=== PATIENT | female | born 1970 | race Hispanic/Latino ===

== ENCOUNTER → 2020-08-07 | Outpatient (CLI) | payer OTHER | LOC: US 13:09 | PROVIDERS: ATTEND Internal Medicine Gastroenterology | DX: R10.84 Generalized abdominal pain (principal) | CPT/HCPCS: 76700 ==

== ENCOUNTER → 2020-08-18 | Outpatient (CLI) | payer OTHER ==
[~2020-08-18] MED LIST: ATORVASTATIN CA20 MG PO; CELEXA20 MG PO; COQ1050 MG PO; LEVOTHYROXINE50 MCG PO; METFORMIN HCL500 MG PO; OMEPRAZOLE40 MG PO; VENLAFAXINE HCL75 MG PO; VITAMIN C500 MG PO
== END | disposition home or self-care (01) ==
LOC: RAD 13:12 → EDSTATUS 08-21 14:30
PROVIDERS: ATTEND Internal Medicine Gastroenterology
DX: Z01.810 Encounter for preprocedural cardiovascular examination (principal); Z01.812 Encounter for preprocedural laboratory examination; Z20.822 Contact with and (suspected) exposure to COVID-19; Z12.11 Encounter for screening for malignant neoplasm of colon; R14.2 Eructation; R19.7 Diarrhea, unspecified; R12 Heartburn; K21.9 Gastro-esophageal reflux disease without esophagitis
CPT/HCPCS: 93005; U0002